=== PATIENT | male | born 1975 | race American Indian/Alaskan Native ===

== ENCOUNTER 2017-08-18 18:26 | Emergency (ER) | payer OTHER ==
[2017-08-18 19:58] LABS: Bacteria,Urine 1+ /HPF (Negative); Bilirubin,Urine NEG (Negative); Blood,Urine SM (Negative); Ketones,Urine NEG (Negative); Leukocyte Esterase,Urine NEG (Negative); Mucus,Urine FEW /HPF; Nitrite,Urine NEG (Negative); Protein,Urine <15 mg/dL mg/dL (Negative); Urobilinogen,Urine < 2.0 mg/dL (<2.0); WBC,Urine < 1.0 /HPF (0.0-6.0)
[2017-08-18 20:21] LABS: Basophils % (Auto) 0.3 % (0.0-1.8); Hematocrit 39.9 % (35.5-45.6); Hemoglobin 13.8 gm/dl (11.8-15.2); Mean Corpuscular HGB Conc 35 % (32-34); Mean Corpuscular Hemoglobin 32 pg (28-32); Mean Corpuscular Volume 92 fl (84-94); Platelet Count 247 K/mm3 (140-440); Red Blood Count 4.33 M/mm3 (3.65-5.03); Red Cell Distribution Width 13.6 % (13.2-15.2); White Blood Count 6.9 K/mm3 (4.5-11.0)
[2017-08-18 20:29] LABS: Anion Gap 22 mmol/L; BUN/Creatinine Ratio 19; Blood Urea Nitrogen 15 mg/dL (9-20); Calcium 9.2 mg/dL (8.4-10.2); Carbon Dioxide 23 mmol/L (22-30); Chloride 94.7 mmol/L (98-107); Glucose 136 mg/dL (75-100); Potassium 4.2 mmol/L (3.6-5.0); Sodium 135 mmol/L (137-145)
[2017-08-19] MEDS ORDERED: NACL 0.9% 1000 ML 1,000 ML IV ONE (07:17)
--- NOTE | 2017-08-19 08:32 | Emergency Department Report ---
ED Dizziness HPI - General Chief Complaint: Dizziness Stated Complaint: DIZZINESS Time Seen by Provider: 08/19/17 07:09 Source: patient Mode of arrival: Ambulatory Limitations: No Limitations - History of Present Illness Initial Comments: 41-year-old male with a past medical history diabetes, hypertension, and elevated cholesterol presents with hospital complaining of lightheadedness 4 days. Symptoms usually began after walking for 3-4 minutes. Patient states he feels faint. He denies any pain including headache, chest pain, abdominal pain , nausea, vomiting, diarrhea, shortness of breath, or diaphoresis. Patient has similar symptoms in the past when his sodium was low. His primary care doctor increase his hydrochlorothiazide to 25 mg 2 months ago. Patient has been urinating a lot but also states he's been trying to drink lots of water but feels he might be dehydrated. Patient states he takes losartan/hydrochlorothiazide 100/25, metoprolol 50 mg as well for blood pressure. - Related Data Previous Rx's Medication Instructions Recorded Last Taken Type Hydrochlorothiazide [Hctz] 12.5 mg PO QDAY #30 capsule 08/19/17 Unknown Rx Losartan [Cozaar] 100 mg PO QDAY #30 tablet 08/19/17 Unknown Rx Allergies Allergy/AdvReac Type Severity Reaction Status Date / Time No Known Allergies Allergy Unverified 08/18/17 18:37 ED Review of Systems ROS: Stated complaint: DIZZINESS Other details as noted in HPI Comment: All other systems reviewed and negative Other: Constitutional: No fevers chills Eyes: No eye pain visual changes ENT: No ear pain or throat pain Neck: Denies pain Respiratory: Denies cough wheezing shortness of breath Cardiovascular: Denies chest pain, palpitations, syncope GI: Denies abdominal pain, nausea, vomiting, diarrhea : Denies dysuria Musculoskeletal: Denies back pain Skin: Denies rash, lesions, erythema Neurologic: Denies headache, numbness, weakness Psychiatric: Denies suicidal ideation, hallucinations ED Past Medical Hx - Past Medical History Previous Medical History?: Yes Hx Hypertension: Yes Hx Diabetes: Yes Additional medical history: High cholesterol - Surgical History Past Surgical History?: No - Social History Smoking Status: Never Smoker Substance Use Type: Alcohol, Prescribed - Medications Home Medications: Home Medications Medication Instructions Recorded Confirmed Last Taken Type Hydrochlorothiazide [Hctz] 12.5 mg PO QDAY #30 capsule 08/19/17 Unknown Rx Losartan [Cozaar] 100 mg PO QDAY #30 tablet 08/19/17 Unknown Rx ED Physical Exam - General Limitations: No Limitations - Other Other exam information: General: No limitations, patient is alert in no acute distress Head exam: Atraumatic, normocephalic Eyes exam: Normal appearance, pupils equal reactive to light, extraocular movements intact, fatiguing right lateral nystagmus ENT: Moist mucous membrane, normal oropharynx Neck exam: Normal inspection, full range of motion, no meningismus nontender Respiratory exam: Clear to auscultation bilateral, no wheezes, rales, crackles Cardiovascular: Normal rate and rhythm Abdomen: Soft, nondistended, and nontender, with normal bowel sounds, no rebound, or guarding Extremity: Full range of motion normal inspection no deformity Back: Normal Inspection, full range of motion, no tenderness Neurologic: Alert, oriented x3, cranial nerves intact, no motor or sensory deficit, [id number] flexion and Psychiatric: normal affect, normal mood Skin: Warm, dry, intact ED Course Vital Signs 08/18/17 08/19/17 08/19/17 18:37 02:10 06:00 Temperature 97.8 F 98.9 F Pulse Rate 109 H 107 H 92 H Pulse Rate [ Lying] Pulse Rate [ Sitting] Pulse Rate [ Standing] Respiratory 20 18 19 Rate Blood Pressure 147/96 165/103 132/87 Blood Pressure [Left] Blood Pressure [Lying] Blood Pressure [Sitting] Blood Pressure [Standing] O2 Sat by Pulse 100 96 100 Oximetry 08/19/17 08/19/17 08/19/17 06:01 07:00 08:00 Temperature 98.7 F Pulse Rate 94 H 100 H 108 H Pulse Rate [ Lying] Pulse Rate [ Sitting] Pulse Rate [ Standing] Respiratory 22 14 21 Rate Blood Pressure 134/90 126/92 Blood Pressure 153/90 [Left] Blood Pressure [Lying] Blood Pressure [Sitting] Blood Pressure [Standing] O2 Sat by Pulse 100 99 99 Oximetry 08/19/17 08:11 Temperature Pulse Rate Pulse Rate [ 87 Lying] Pulse Rate [ 110 H Sitting] Pulse Rate [ 108 H Standing] Respiratory Rate Blood Pressure Blood Pressure [Left] Blood Pressure 138/88 [Lying] Blood Pressure 131/89 [Sitting] Blood Pressure 126/92 [Standing] O2 Sat by Pulse Oximetry - Reevaluation(s) Reevaluation #1: 08/19/17 08:31 Orthostatics performed showing increasing heart rate with standing. IV fluids initiated. Glucose less than 200 ED Medical Decision Making - Lab Data Result diagrams: 08/18/17 19:58 08/18/17 19:58 Lab Results 08/18/17 08/18/17 08/18/17 Range/Units 19:58 19:58 Unknown WBC 6.9 (4.5-11.0) K/mm3 RBC 4.33 (3.65-5.03) M/mm3 Hgb 13.8 (11.8-15.2) gm/dl Hct 39.9 (35.5-45.6) % MCV 92 (84-94) fl MCH 32 (28-32) pg MCHC 35 H (32-34) % RDW 13.6 (13.2-15.2) % Plt Count 247 (140-440) K/mm3 Lymph % (Auto) 19.9 (13.4-35.0) % [place]ps % (Auto) 6.7 (0.0-7.3) % Eos % (Auto) 1.0 (0.0-4.3) % Baso % (Auto) 0.3 (0.0-1.8) % Lymph # 1.4 (1.2-5.4) K/mm3 [place]helps # 0.5 (0.0-0.8) K/mm3 Eos # 0.1 (0.0-0.4) K/mm3 Baso # 0.0 (0.0-0.1) K/mm3 Seg Neutrophils % 72.1 H (40.0-70.0) % Seg Neutrophils # 5.0 (1.8-7.7) K/mm3 Sodium 135 L (137-145) mmol/L Potassium 4.2 (3.6-5.0) mmol/L Chloride 94.7 L (98-107) mmol/L Carbon Dioxide 23 (22-30) mmol/L Anion Gap 22 mmol/L BUN 15 (9-20) mg/dL Creatinine 0.8 (0.8-1.5) mg/dL Estimated GFR > 60 ml/min BUN/Creatinine Ratio 19 % Glucose 136 H (75-100) mg/dL Calcium 9.2 (8.4-10.2) mg/dL Troponin T < 0.010 (0.00-0.029) ng/mL Urine Color Straw (Yellow) Urine Turbidity Clear (Clear) Urine pH 5.0 (5.0-7.0) Ur Specific [place] 1.004 (1.003-1.030) Urine Protein <15 mg/dl (Negative) mg/dL Urine Glucose (UA) Neg (Negative) mg/dL Urine Ketones Neg (Negative) mg/dL Urine Blood Sm (Negative) Urine Nitrite Neg (Negative) Urine Bilirubin Neg (Negative) Urine Urobilinogen < 2.0 (<2.0) mg/dL Ur Leukocyte Esterase Neg (Negative) Urine WBC (Auto) < 1.0 (0.0-6.0) /HPF Urine RBC (Auto) 1.0 (0.0-6.0) /HPF U Epithel Cells (Auto) < 1.0 (0-13.0) /HPF Urine Bacteria (Auto) 1+ (Negative) /HPF Urine Mucus Few /HPF - EKG Data -: EKG Interpreted by Me EKG shows normal: sinus rhythm, axis (3), QRS complexes (89), ST-T waves (no stemi/t inv) Rate: normal (96) - EKG Data When compared to previous EKG there are: previous EKG unavailable - Medical Decision Making Patient feels much better after receiving 1 L normal saline. Ambulates in the ED without recurrent lightheadedness. I will write for his losartan 100 mg and decrease his hydrochlorothiazide back down to 12.5 mg. I will write for these separately (as opposed to the combination pill) so he can manage his side effects of these medications individually. Patient instructed to continue his metoprolol. He states he can follow-up with his doctor tomorrow - Differential Diagnosis dehydration, electrolyte abnormality, anemia, VBI, vertigo, arrhythmia Critical Care Time: No Critical care attestation.: If time is entered above; I have spent that time in minutes in the direct care of this critically ill patient, excluding procedure time. ED Disposition Clinical Impression: Lightheaded, Volume depletion, Diuretics causing adverse effect in therapeutic use Disposition: DC-01 TO HOME OR SELFCARE Is pt being admited?: No Does the pt Need Aspirin: No Condition: Stable Instructions: Lightheadedness (ED), Dehydration (ED) Additional Instructions: Discontinue your losartan/hydrochlorothiazide medication. I have written for these medications to be taken individually and reduced your dose of hydrochlorothiazide back down to 12.5 mg. Follow-up with your doctor tomorrow for blood pressure recheck and symptom reevaluation. Please return if symptoms worsen. Continue your metoprolol and other medication as prescribed. Prescriptions: Hydrochlorothiazide [Hctz] 12.5 mg PO QDAY #30 capsule Losartan [Cozaar] 100 mg PO QDAY #30 tablet Referrals: TEJAL MORALES NP [Primary Care Provider] - 24 Hours Time of Disposition: 09:18
[2017-08-19 10:26] VITALS: BP 132/87
== END 2017-08-19 09:35 | disposition home or self-care (01) ==
LOC: ED 18:26
DX: R42 Dizziness and giddiness (principal); E86.9 Volume depletion, unspecified; T50.2X5A Adverse effect of carbonic-anhydrase inhibitors, benzothiadiazides and other diuretics, initial encounter; I10 Essential (primary) hypertension; E11.9 Type 2 diabetes mellitus without complications; E78.00 Pure hypercholesterolemia, unspecified; Y92.89 Other specified places as the place of occurrence of the external cause
CPT/HCPCS: 36415; 80048; 81001; 82962; 84484; 85025; 93005; 93010; 96360; 99284; J7030